=== PATIENT | female | born 1965 | race African-American/Black ===

== ENCOUNTER 2016-11-28 13:38 | Emergency (ER) | payer OTHER ==
[~2016-11-28] VITALS: Ht 157.5 cm; Wt 68.0 kg
[2016-11-28 13:41] VITALS: Ht 157.5 cm; Wt 68.0 kg
[2016-11-28] MEDS ORDERED: KETOROLAC 60 MG INJ IM STA (15:21)
[2016-11-28 15:42] LABS: ADD UMIC YES; URINE BILIRUBIN (Dip) NEGATIVE (NEGATIVE); URINE BLOOD (Dip) 1+ (NEGATIVE); URINE COLOR LT. YELLOW (YELLOW); URINE GLUCOSE (Dip) NEGATIVE (NEGATIVE); URINE KETONES (Dip) NEGATIVE (NEGATIVE); URINE LEUKOCYTE ESTERASE (Dip) 3+ (NEGATIVE); URINE NITRITE (Dip) POSITIVE (NEGATIVE); URINE TOTAL PROTEIN (Dip) TRACE (NEGATIVE); URINE UROBILINOGEN (Dip) 0.2 E.U./dL (0.1-1.0)
[2016-11-28] MEDS ORDERED: CEPH-443 PO (15:48)
[2016-11-28] MEDS ORDERED: PHEN-537 PO (15:48)
[2016-11-28] MEDS ORDERED: NAPR-688 PO (15:48)
[2016-11-28 15:49] LABS: BACTERIA,URINE MANY
--- NOTE | 2016-11-28 15:51 | ERD ---
ER Documentation Chief Complaint Date/Time DATE: 11/28/16 TIME: 15:51 Chief Complaint dysuria today HPI 51-year-old female comes for burning on urination and urinary frequency for a week. She has no flank pain yet. Also this weekend she developed a URI with a cough and runny nose. She has had no fevers or chills but has had some generalized body aches. States that she is otherwise healthy. ROS All systems reviewed and are negative except as per history of present illness. Medications Home Meds Active Scripts Nitrofurantoin Monohyd Macrocr* (Macrobid*) 100 Mg Capsr, 100 MG PO BID for 5 Days, CAP Prov:JOSE LUIS SWIFT DO 11/28/16 Phenazopyridine Hcl* (Pyridium*) 100 Mg Tab, 100 MG PO TID Y for URINARY PAIN, # 8 TAB Prov:JOSE LUIS SWIFT DO 11/28/16 Cephalexin* (Keflex*) 500 Mg Capsule, 500 MG PO TID for 5 Days, CAP Prov:JOSE LUIS SWIFT DO 11/28/16 Naproxen* (Naproxen*) 500 Mg Tablet, 500 MG PO BID Y for PAIN, #20 TAB Prov:JOSE LUIS SWIFT DO 11/28/16 PMhx/Soc Medical and Surgical Hx: pt denies Medical Hx, pt denies Surgical Hx Hx Alcohol Use: No Hx Substance Use: No Hx Tobacco Use: No Smoking Status: Never smoker Physical Exam Vitals Vital Signs Date Time Temp Pulse Resp B/P Pulse Ox O2 Delivery O2 Flow Rate FiO2 11/28/16 13:41 97.9 68 10 184/84 99 Physical Exam Const: [] No distress Head: Atraumatic Eyes: Normal Conjunctiva ENT: Normal External Ears, Nose and Mouth. Normal appearance of dentition. It is membranes moist Neck: Full range of motion..~ No meningismus. Resp: Clear to auscultation bilaterally Cardio: Regular rate and rhythm, no murmurs Abd: Soft, non tender, non distended. Normal bowel sounds Results 24 hrs Laboratory Tests Test 11/28/16 15:20 Urine Color LT. YELLOW Urine Clarity CLEAR Urine pH 5.5 Urine Specific [place] 1.025 Urine Ketones NEGATIVE Urine Nitrite POSITIVE Urine Bilirubin NEGATIVE Urine Urobilinogen 0.2 E.U./dL Urine Leukocyte Esterase 3+ Urine Microscopic RBC 10-25/HPF Urine Microscopic WBC >200/HPF Urine Epithelial Cells FEW Urine Bacteria MANY Urine Hemoglobin 1+ Urine Glucose NEGATIVE% Urine Total Protein TRACE Current Medications Medications (Trade) Dose Ordered Sig/Ralph Route PRN Reason Start Time Stop Time Status Last Admin Dose Admin Ketorolac Tromethamine (Toradol) 60 mg ONCE STAT IM 11/28/16 15:21 11/28/16 15:23 DC 11/28/16 15:30 Ibuprofen (Motrin) 600 mg ONCE ONCE PO 11/28/16 16:30 11/28/16 16:31 DC 11/28/16 16:25 Procedures/MDM Urinary tract infection and likely viral URI. Patient was given a shot of Toradol 60 mg IM which made her feel much better. Going to discharge her with Keflex as well as naproxen and Pyridium. Departure Diagnosis: Primary Impression: UTI (urinary tract infection) Additional Impression: URI, acute Condition: Stable Patient Instructions: Understanding Urinary Tract Infections (UTIs), Uri, Viral , No Abx (Adult) Referrals: [facility] YOU HAVE RECEIVED A MEDICAL SCREENING EXAM AND THE RESULTS INDICATE THAT YOU DO NOT HAVE A CONDITION THAT REQUIRES URGENT TREATMENT IN THE EMERGENCY DEPARTMENT. FURTHER EVALUATION AND TREATMENT OF YOUR CONDITION CAN WAIT UNTIL YOU ARE SEEN IN YOUR DOCTORS OFFICE WITHIN THE NEXT 1-2 DAYS. IT IS YOUR RESPONSIBILITY TO MAKE AN APPOINTMENT FOR FOLOW-UP CARE. IF YOU HAVE A PRIMARY DOCTOR --you should call your primary doctor and schedule an appointment IF YOU DO NOT HAVE A PRIMARY DOCTOR YOU CAN CALL OUR PHYSICIAN REFERRAL HOTLINE AT IF YOU CAN NOT AFFORD TO SEE A PHYSICIAN YOU CAN CHOSE FROM THE FOLLOWING [facility] [address] [facility] [facility] [address] [facility] [facility] [address] [facility] [facility] [address] [facility] [address] [facility]. [facility]. [address] Additional Instructions: Call your primary care doctor TOMORROW for an appointment during the next 2-3 days.See the doctor sooner or return here if your condition worsens before your appointment time. JOSE LUIS SWIFT DO Nov 28, 2016 15:51
[2016-11-28] MEDS ORDERED: IBUPROFEN 600 MG TAB PO ONE (16:30)
[2016-11-28] MEDS ORDERED: NITR-58 PO (16:41)
[2016-11-28] MEDS ORDERED: AMLO-145 PO (16:53)
[2016-11-28 16:57] VITALS: BP 180/92; PULSE 62; RESP 18; TEMP 98
== END 2016-11-28 16:58 | disposition home or self-care (01) ==
LOC: FTE 13:38
DX: N39.0 Urinary tract infection, site not specified (principal); J06.9 Acute upper respiratory infection, unspecified
CPT/HCPCS: 81001; J1885; Z7610; 96372